=== PATIENT | female | born 1940 | race Caucasian/White ===

== ENCOUNTER 2019-04-09 11:20 | Inpatient (IN) | payer MEDICARE, OTHER, MEDICAID ==
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
[2019-04-09] MEDS: Acetaminophen/oxyCODONE 325-5 MG Tab PO PRN ×2 (16:59→23:08)
[2019-04-09] MEDS: LEVODOPA PO SCH (17:52)
[2019-04-09] MEDS: CARBIDOPA PO SCH (17:52)
[2019-04-09] MEDS: Morphine Oral Concentrate 20 MG/ML 30 ML Bottle PO PRN (20:14)
[2019-04-09] MEDS: Ondansetron 4 MG Tab.DIS PO PRN (20:17)
[2019-04-09] MEDS: Simvastatin 20 MG Tab PO SCH (20:17)
[2019-04-09] MEDS: Polyethylene Glycol 3350 Powder 510 GM Bot PO SCH (20:38)
[2019-04-10] MEDS: Acetaminophen 325 MG Tab PO PRN (01:13)
[2019-04-10] MEDS: Morphine Oral Concentrate 20 MG/ML 30 ML Bottle PO PRN (03:02)
[2019-04-10] MEDS: Ondansetron 4 MG Tab.DIS PO PRN ×4 (05:37→20:51)
[2019-04-10] MEDS: Levothyroxine 50 MCG Tab PO SCH (08:30)
[2019-04-10] MEDS: Losartan 50 MG Tab PO SCH (08:30)
[2019-04-10] MEDS: Aspirin 81 MG Tab.EC PO SCH (08:31)
[2019-04-10] MEDS: Hydrochlorothiazide 25 MG Tab PO SCH (08:32)
[2019-04-10] MEDS: LEVODOPA PO SCH ×2 (08:56→17:01)
[2019-04-10] MEDS: CARBIDOPA PO SCH ×2 (08:56→17:01)
[2019-04-10] MEDS: Acetaminophen/oxyCODONE 325-5 MG Tab PO PRN ×3 (08:57→23:21)
[2019-04-10] MEDS: Simvastatin 20 MG Tab PO SCH (20:51)
[2019-04-10] MEDS: Polyethylene Glycol 3350 Powder 510 GM Bot PO SCH (20:52)
[2019-04-11] MEDS ORDERED: Promethazine 25 MG/ML SDV IM ONE (00:02)
[2019-04-11] MEDS: Levothyroxine 50 MCG Tab PO SCH (07:52)
[2019-04-11] MEDS: Losartan 50 MG Tab PO SCH (07:52)
[2019-04-11] MEDS: Aspirin 81 MG Tab.EC PO SCH (07:54)
[2019-04-11] MEDS: Hydrochlorothiazide 25 MG Tab PO SCH (07:55)
[2019-04-11] MEDS: LEVODOPA PO SCH ×2 (07:56→17:22)
[2019-04-11] MEDS: CARBIDOPA PO SCH ×2 (07:56→17:22)
[2019-04-11] MEDS: Hydrocortisone 1% Crm 30 GM Tube TOP SCH (19:50)
[2019-04-11] MEDS: Polyethylene Glycol 3350 Powder 510 GM Bot PO SCH (19:51)
[2019-04-11] MEDS: Simvastatin 20 MG Tab PO SCH (19:51)
[2019-04-12] MEDS: Levothyroxine 50 MCG Tab PO SCH (08:08)
[2019-04-12] MEDS: Losartan 50 MG Tab PO SCH (08:12)
[2019-04-12] MEDS: Aspirin 81 MG Tab.EC PO SCH (08:13)
[2019-04-12] MEDS: Hydrochlorothiazide 25 MG Tab PO SCH (08:14)
[2019-04-12] MEDS: CARBIDOPA PO SCH ×2 (08:14→17:27)
[2019-04-12] MEDS: LEVODOPA PO SCH ×2 (08:14→17:27)
[2019-04-12] MEDS: Acetaminophen 325 MG Tab PO PRN ×2 (13:15→20:07)
[2019-04-12] MEDS: Polyethylene Glycol 3350 Powder 510 GM Bot PO SCH (19:19)
[2019-04-12] MEDS: Hydrocortisone 1% Crm 30 GM Tube TOP SCH (20:07)
[2019-04-12] MEDS: Simvastatin 20 MG Tab PO SCH (20:07)
[2019-04-13] MEDS: Acetaminophen 325 MG Tab PO PRN ×2 (05:19→19:42)
[2019-04-13] MEDS: Levothyroxine 50 MCG Tab PO SCH (08:04)
[2019-04-13] MEDS: Losartan 50 MG Tab PO SCH (08:08)
[2019-04-13] MEDS: Aspirin 81 MG Tab.EC PO SCH (08:08)
[2019-04-13] MEDS: LEVODOPA PO SCH ×2 (08:09→17:23)
[2019-04-13] MEDS: CARBIDOPA PO SCH ×2 (08:09→17:23)
[2019-04-13] MEDS: Hydrochlorothiazide 25 MG Tab PO SCH (08:09)
[2019-04-13] MEDS: Polyethylene Glycol 3350 Powder 510 GM Bot PO SCH (19:40)
[2019-04-13] MEDS: Hydrocortisone 1% Crm 30 GM Tube TOP SCH (19:42)
[2019-04-13] MEDS: Simvastatin 20 MG Tab PO SCH (19:43)
[2019-04-14] MEDS: Acetaminophen 325 MG Tab PO PRN ×2 (01:45→07:01)
[2019-04-14] MEDS: Promethazine 25 MG/ML SDV IM PRN (03:53)
[2019-04-14] MEDS: Levothyroxine 50 MCG Tab PO SCH (07:01)
[2019-04-14] MEDS: Hydrochlorothiazide 25 MG Tab PO SCH (07:07)
[2019-04-14] MEDS: Aspirin 81 MG Tab.EC PO SCH (07:07)
[2019-04-14] MEDS: LEVODOPA PO SCH ×2 (07:09→18:11)
[2019-04-14] MEDS: CARBIDOPA PO SCH ×2 (07:09→18:11)
[2019-04-14] MEDS: Losartan 50 MG Tab PO SCH (08:36)
--- NOTE | 2019-04-14 17:49 | PCM.SN ---
- Free Text/Narrative Note: Patient is a 78-year-old female who was recently admitted to swing bed today night nurse called stating that patient was increased confused and agitated trying to get up from bed all day long I went to visit with the patient patient was awake and alert. To be very anxious and did not want to rest offered me that during but knew why was patient appeared confused and disoriented a UA was obtained which showed that she has a UTI I will go ahead and do electrolytes we will go ahead and start her on Ativan to calm her down for the next couple days while we work her up for her confusion Electrolytes ordered Physical exam normocephalic atraumatic eyes PERRLA neck was supple lungs clear to localization heart was regular rate and rhythm around 90 bpm abdomen was soft nontender extremities reveal range of motion denies pain Assessmen confusion secondary to UTI Fabio we will start her on antibiotics for UTI check electrolytes start her on Ativan in an attempt for her to be less agitated so that she won't harm herself or others around her.n t
[2019-04-14] MEDS: Sulfamethoxazole/Trimethoprim 800-160 MG Tab PO SCH (18:12)
[2019-04-14] MEDS: LORazepam 1 MG Tab PO PRN (18:12)
[2019-04-14 18:27] LABS: CHLORIDE,CL 94 mmol/L (98-107); SODIUM,NA 133 mmol/L (136-145)
[2019-04-14] MEDS: Hydrocortisone 1% Crm 30 GM Tube TOP SCH (20:24)
[2019-04-14] MEDS: Simvastatin 20 MG Tab PO SCH (20:25)
[2019-04-14] MEDS: Polyethylene Glycol 3350 Powder 510 GM Bot PO SCH (20:25)
[2019-04-15] MEDS: Levothyroxine 50 MCG Tab PO SCH (07:53)
[2019-04-15] MEDS: Hydrochlorothiazide 25 MG Tab PO SCH (07:54)
[2019-04-15] MEDS: Aspirin 81 MG Tab.EC PO SCH (07:54)
[2019-04-15] MEDS: LEVODOPA PO SCH ×2 (07:55→17:19)
[2019-04-15] MEDS: CARBIDOPA PO SCH ×2 (07:55→17:19)
[2019-04-15] MEDS: Acetaminophen 325 MG Tab PO PRN ×2 (07:56→17:19)
[2019-04-15] MEDS: Losartan 50 MG Tab PO SCH (07:56)
[2019-04-15] MEDS: Sulfamethoxazole/Trimethoprim 800-160 MG Tab PO SCH ×2 (08:05→17:20)
[2019-04-15] MEDS: Hydrocortisone 1% Crm 30 GM Tube TOP SCH (19:52)
[2019-04-15] MEDS: Simvastatin 20 MG Tab PO SCH (19:53)
[2019-04-15] MEDS: Polyethylene Glycol 3350 Powder 510 GM Bot PO SCH (19:54)
[2019-04-16] MEDS: Acetaminophen 325 MG Tab PO PRN ×2 (05:19→17:15)
[2019-04-16] MEDS: Levothyroxine 50 MCG Tab PO SCH (08:00)
[2019-04-16] MEDS: Hydrochlorothiazide 25 MG Tab PO SCH (08:01)
[2019-04-16] MEDS: Aspirin 81 MG Tab.EC PO SCH (08:01)
[2019-04-16] MEDS: Lutein/Minerals/Vitamin C/Vitamin E Acetate Cap PO SCH (08:02)
[2019-04-16] MEDS: Sulfamethoxazole/Trimethoprim 800-160 MG Tab PO SCH ×2 (08:02→17:16)
[2019-04-16] MEDS: CARBIDOPA PO SCH ×2 (08:02→17:16)
[2019-04-16] MEDS: LEVODOPA PO SCH ×2 (08:02→17:16)
[2019-04-16] MEDS: Losartan 50 MG Tab PO SCH (08:10)
[2019-04-16] MEDS: Polyethylene Glycol 3350 Powder 510 GM Bot PO SCH (19:15)
[2019-04-16] MEDS: Hydrocortisone 1% Crm 30 GM Tube TOP SCH (19:16)
[2019-04-16] MEDS: Simvastatin 20 MG Tab PO SCH (19:16)
[2019-04-17] MEDS: CARBIDOPA PO SCH ×2 (08:48→17:38)
[2019-04-17] MEDS: LEVODOPA PO SCH ×2 (08:48→17:38)
[2019-04-17] MEDS: Sulfamethoxazole/Trimethoprim 800-160 MG Tab PO SCH ×2 (08:48→17:38)
[2019-04-17] MEDS: Hydrochlorothiazide 25 MG Tab PO SCH (08:49)
[2019-04-17] MEDS: Levothyroxine 50 MCG Tab PO SCH (08:49)
[2019-04-17] MEDS: Losartan 50 MG Tab PO SCH (08:50)
[2019-04-17] MEDS: Lutein/Minerals/Vitamin C/Vitamin E Acetate Cap PO SCH (08:54)
[2019-04-17] MEDS: Aspirin 81 MG Tab.EC PO SCH (08:54)
[2019-04-17] MEDS: Simvastatin 20 MG Tab PO SCH (19:28)
[2019-04-17] MEDS: Hydrocortisone 1% Crm 30 GM Tube TOP SCH (19:28)
[2019-04-17] MEDS: Polyethylene Glycol 3350 Powder 510 GM Bot PO SCH (19:29)
[2019-04-17] MEDS: LORazepam 1 MG Tab PO PRN (20:40)
[2019-04-18] MEDS: Hydrochlorothiazide 25 MG Tab PO SCH (09:07)
[2019-04-18] MEDS: Levothyroxine 50 MCG Tab PO SCH (09:08)
[2019-04-18] MEDS: Losartan 50 MG Tab PO SCH (09:09)
[2019-04-18] MEDS: CARBIDOPA PO SCH ×2 (09:10→17:25)
[2019-04-18] MEDS: LEVODOPA PO SCH ×2 (09:10→17:25)
[2019-04-18] MEDS: Aspirin 81 MG Tab.EC PO SCH (09:12)
[2019-04-18] MEDS: Lutein/Minerals/Vitamin C/Vitamin E Acetate Cap PO SCH (09:12)
[2019-04-18] MEDS: Sulfamethoxazole/Trimethoprim 800-160 MG Tab PO SCH ×2 (09:13→17:26)
[2019-04-18] MEDS: Acetaminophen 325 MG Tab PO PRN ×2 (09:13→17:24)
[2019-04-18] MEDS: LORazepam 1 MG Tab PO PRN (17:23)
[2019-04-18] MEDS: Hydrocortisone 1% Crm 30 GM Tube TOP SCH (19:52)
[2019-04-18] MEDS: Polyethylene Glycol 3350 Powder 510 GM Bot PO SCH (19:53)
[2019-04-18] MEDS: Simvastatin 20 MG Tab PO SCH (19:54)
[2019-04-19] MEDS: Hydrochlorothiazide 25 MG Tab PO SCH (08:29)
[2019-04-19] MEDS: Acetaminophen 325 MG Tab PO PRN ×2 (08:29→17:06)
[2019-04-19] MEDS: Levothyroxine 50 MCG Tab PO SCH (08:33)
[2019-04-19] MEDS: Losartan 50 MG Tab PO SCH (08:34)
[2019-04-19] MEDS: Aspirin 81 MG Tab.EC PO SCH (08:34)
[2019-04-19] MEDS: LEVODOPA PO SCH ×2 (08:35→17:05)
[2019-04-19] MEDS: Sulfamethoxazole/Trimethoprim 800-160 MG Tab PO SCH ×2 (08:35→17:05)
[2019-04-19] MEDS: CARBIDOPA PO SCH ×2 (08:35→17:05)
[2019-04-19] MEDS: Lutein/Minerals/Vitamin C/Vitamin E Acetate Cap PO SCH (08:36)
[2019-04-19] MEDS: LORazepam 1 MG Tab PO PRN ×2 (09:34→21:04)
[2019-04-19] MEDS: Hydrocortisone 1% Crm 30 GM Tube TOP SCH (19:59)
[2019-04-19] MEDS: Simvastatin 20 MG Tab PO SCH (19:59)
[2019-04-19] MEDS: Polyethylene Glycol 3350 Powder 510 GM Bot PO SCH (20:00)
[2019-04-20] MEDS: LEVODOPA PO SCH ×2 (08:12→19:45)
[2019-04-20] MEDS: CARBIDOPA PO SCH ×2 (08:12→19:45)
[2019-04-20] MEDS: Levothyroxine 50 MCG Tab PO SCH (08:12)
[2019-04-20] MEDS: Hydrochlorothiazide 25 MG Tab PO SCH (08:13)
[2019-04-20] MEDS: Losartan 50 MG Tab PO SCH (08:13)
[2019-04-20] MEDS: Aspirin 81 MG Tab.EC PO SCH (08:14)
[2019-04-20] MEDS: Lutein/Minerals/Vitamin C/Vitamin E Acetate Cap PO SCH (08:15)
[2019-04-20] MEDS: Sulfamethoxazole/Trimethoprim 800-160 MG Tab PO SCH ×2 (08:15→19:45)
[2019-04-20] MEDS: Acetaminophen 325 MG Tab PO PRN ×3 (08:16→20:56)
[2019-04-20] MEDS: LORazepam 1 MG Tab PO PRN ×2 (08:16→19:48)
[2019-04-20] MEDS: Polyethylene Glycol 3350 Powder 510 GM Bot PO SCH (19:45)
[2019-04-20] MEDS: Hydrocortisone 1% Crm 30 GM Tube TOP SCH (19:45)
[2019-04-20] MEDS: Simvastatin 20 MG Tab PO SCH (19:46)
[2019-04-21] MEDS: Losartan 50 MG Tab PO SCH (08:05)
[2019-04-21] MEDS: Levothyroxine 50 MCG Tab PO SCH (08:05)
[2019-04-21] MEDS: Aspirin 81 MG Tab.EC PO SCH (08:06)
[2019-04-21] MEDS: Hydrochlorothiazide 25 MG Tab PO SCH (08:06)
[2019-04-21] MEDS: LEVODOPA PO SCH ×2 (08:06→17:12)
[2019-04-21] MEDS: CARBIDOPA PO SCH ×2 (08:06→17:12)
[2019-04-21] MEDS: Sulfamethoxazole/Trimethoprim 800-160 MG Tab PO SCH ×2 (08:07→17:12)
[2019-04-21] MEDS: Lutein/Minerals/Vitamin C/Vitamin E Acetate Cap PO SCH (08:07)
[2019-04-21] MEDS: Acetaminophen 325 MG Tab PO PRN ×2 (08:08→13:28)
[2019-04-21] MEDS: LORazepam 1 MG Tab PO PRN (13:54)
[2019-04-21] MEDS: Polyethylene Glycol 3350 Powder 510 GM Bot PO SCH (19:35)
[2019-04-21] MEDS: Hydrocortisone 1% Crm 30 GM Tube TOP SCH (19:35)
[2019-04-21] MEDS: Simvastatin 20 MG Tab PO SCH (19:35)
[2019-04-22] MEDS: Acetaminophen 325 MG Tab PO PRN ×2 (03:19→22:47)
[2019-04-22] MEDS: LORazepam 1 MG Tab PO PRN ×2 (04:15→22:48)
[2019-04-22] MEDS: Levothyroxine 50 MCG Tab PO SCH (07:45)
[2019-04-22] MEDS: Losartan 50 MG Tab PO SCH (07:45)
[2019-04-22] MEDS: Aspirin 81 MG Tab.EC PO SCH (07:46)
[2019-04-22] MEDS: LEVODOPA PO SCH ×2 (07:46→17:23)
[2019-04-22] MEDS: CARBIDOPA PO SCH ×2 (07:46→17:23)
[2019-04-22] MEDS: Hydrochlorothiazide 25 MG Tab PO SCH (07:46)
[2019-04-22] MEDS: Sulfamethoxazole/Trimethoprim 800-160 MG Tab PO SCH ×2 (07:47→17:23)
[2019-04-22] MEDS: Lutein/Minerals/Vitamin C/Vitamin E Acetate Cap PO SCH (07:47)
[2019-04-22] MEDS: Hydrocortisone 1% Crm 30 GM Tube TOP SCH (19:34)
[2019-04-22] MEDS: Simvastatin 20 MG Tab PO SCH (19:35)
[2019-04-22] MEDS: Polyethylene Glycol 3350 Powder 510 GM Bot PO SCH (19:36)
[2019-04-23] MEDS: Levothyroxine 50 MCG Tab PO SCH (08:26)
[2019-04-23] MEDS: Losartan 50 MG Tab PO SCH (08:28)
[2019-04-23] MEDS: Aspirin 81 MG Tab.EC PO SCH (08:33)
[2019-04-23] MEDS: Hydrochlorothiazide 25 MG Tab PO SCH (08:33)
[2019-04-23] MEDS: CARBIDOPA PO SCH ×2 (08:34→17:14)
[2019-04-23] MEDS: LEVODOPA PO SCH ×2 (08:34→17:14)
[2019-04-23] MEDS: Lutein/Minerals/Vitamin C/Vitamin E Acetate Cap PO SCH (08:34)
[2019-04-23] MEDS: Sulfamethoxazole/Trimethoprim 800-160 MG Tab PO SCH ×2 (08:35→17:13)
[2019-04-23] MEDS: Acetaminophen 325 MG Tab PO PRN (08:39)
[2019-04-23] MEDS: LORazepam 1 MG Tab PO PRN ×2 (10:40→21:54)
[2019-04-23] MEDS: Ondansetron 4 MG Tab.DIS PO PRN (17:12)
[2019-04-23] MEDS: Hydrocortisone 1% Crm 30 GM Tube TOP SCH (19:41)
[2019-04-23] MEDS: Polyethylene Glycol 3350 Powder 510 GM Bot PO SCH (19:41)
[2019-04-23] MEDS: Simvastatin 20 MG Tab PO SCH (19:42)
[2019-04-24] MEDS: Levothyroxine 50 MCG Tab PO SCH ×2 (05:08→09:53)
[2019-04-24] MEDS: Losartan 50 MG Tab PO SCH ×2 (05:11→09:52)
[2019-04-24] MEDS: Aspirin 81 MG Tab.EC PO SCH ×2 (05:13→09:53)
[2019-04-24] MEDS: Hydrochlorothiazide 25 MG Tab PO SCH ×2 (05:14→09:53)
[2019-04-24] MEDS: LEVODOPA PO SCH ×3 (05:15→17:38)
[2019-04-24] MEDS: CARBIDOPA PO SCH ×3 (05:15→17:38)
[2019-04-24] MEDS: Sulfamethoxazole/Trimethoprim 800-160 MG Tab PO SCH ×3 (05:16→17:38)
[2019-04-24] MEDS: Lutein/Minerals/Vitamin C/Vitamin E Acetate Cap PO SCH ×2 (05:16→09:54)
[2019-04-24] MEDS: Acetaminophen 325 MG Tab PO PRN ×2 (05:20→23:44)
[2019-04-24] MEDS ORDERED: LORazepam 1 MG Tab PO ONE (05:30)
[2019-04-24] MEDS: Ondansetron 4 MG Tab.DIS PO PRN (13:37)
[2019-04-24] MEDS: Simvastatin 20 MG Tab PO SCH (19:35)
[2019-04-24] MEDS: Hydrocortisone 1% Crm 30 GM Tube TOP SCH (19:35)
[2019-04-25] MEDS: LORazepam 1 MG Tab PO PRN ×2 (03:02→19:22)
[2019-04-25] MEDS: Levothyroxine 50 MCG Tab PO SCH (07:34)
[2019-04-25] MEDS: Losartan 50 MG Tab PO SCH (07:35)
[2019-04-25] MEDS: Aspirin 81 MG Tab.EC PO SCH (07:35)
[2019-04-25] MEDS: Hydrochlorothiazide 25 MG Tab PO SCH (07:36)
[2019-04-25] MEDS: Lutein/Minerals/Vitamin C/Vitamin E Acetate Cap PO SCH (07:37)
[2019-04-25] MEDS: LEVODOPA PO SCH ×2 (07:37→17:12)
[2019-04-25] MEDS: CARBIDOPA PO SCH ×2 (07:37→17:12)
[2019-04-25] MEDS: Acetaminophen 325 MG Tab PO PRN ×2 (07:39→13:50)
[2019-04-25] MEDS ORDERED: Polyethylene Glycol 3350 Powder 17 GM Packet PO SCH (08:00)
[2019-04-25] MEDS: Sertraline 25 MG Tab PO SCH (08:08)
[2019-04-25] MEDS: Ondansetron 4 MG Tab.DIS PO PRN (10:21)
[2019-04-25] MEDS: traMADol 50 MG Tab PO PRN (16:48)
[2019-04-25] MEDS: Simvastatin 20 MG Tab PO SCH (19:20)
[2019-04-25] MEDS: Hydrocortisone 1% Crm 30 GM Tube TOP SCH (19:21)
[2019-04-26] MEDS: Aluminum Hydroxide/Magnesium Hydroxide/Simethicone Susp 30 ML Cup PO PRN (00:42)
[2019-04-26] MEDS: Levothyroxine 50 MCG Tab PO SCH (08:08)
[2019-04-26] MEDS: Losartan 50 MG Tab PO SCH (08:08)
[2019-04-26] MEDS: Aspirin 81 MG Tab.EC PO SCH (08:09)
[2019-04-26] MEDS: Hydrochlorothiazide 25 MG Tab PO SCH (08:09)
[2019-04-26] MEDS: LEVODOPA PO SCH ×2 (08:10→17:12)
[2019-04-26] MEDS: CARBIDOPA PO SCH ×2 (08:10→17:12)
[2019-04-26] MEDS: Lutein/Minerals/Vitamin C/Vitamin E Acetate Cap PO SCH (08:11)
[2019-04-26] MEDS: Sertraline 25 MG Tab PO SCH (08:12)
[2019-04-26] MEDS: Acetaminophen 325 MG Tab PO PRN ×2 (08:13→13:10)
[2019-04-26] MEDS: traMADol 50 MG Tab PO PRN (15:18)
[2019-04-26] MEDS: Ondansetron 4 MG Tab.DIS PO PRN (16:03)
[2019-04-26] MEDS: Hydrocortisone 1% Crm 30 GM Tube TOP SCH (19:20)
[2019-04-26] MEDS: Simvastatin 20 MG Tab PO SCH (19:21)
[2019-04-26] MEDS: LORazepam 1 MG Tab PO PRN (19:22)
[2019-04-27] MEDS: Levothyroxine 50 MCG Tab PO SCH (08:10)
[2019-04-27] MEDS: CARBIDOPA PO SCH ×2 (08:11→17:18)
[2019-04-27] MEDS: LEVODOPA PO SCH ×2 (08:11→17:18)
[2019-04-27] MEDS: Hydrochlorothiazide 25 MG Tab PO SCH (08:12)
[2019-04-27] MEDS: Losartan 50 MG Tab PO SCH (08:13)
[2019-04-27] MEDS: Aspirin 81 MG Tab.EC PO SCH (08:14)
[2019-04-27] MEDS: Sertraline 25 MG Tab PO SCH (08:15)
[2019-04-27] MEDS: Polyethylene Glycol 3350 Powder 510 GM Bot PO SCH (08:17)
[2019-04-27] MEDS: Lutein/Minerals/Vitamin C/Vitamin E Acetate Cap PO SCH (08:18)
[2019-04-27] MEDS: Ondansetron 4 MG Tab.DIS PO PRN (08:26)
[2019-04-27] MEDS: Acetaminophen 325 MG Tab PO PRN (13:38)
[2019-04-27] MEDS: traMADol 50 MG Tab PO PRN ×2 (15:05→23:17)
[2019-04-27] MEDS: Hydrocortisone 1% Crm 30 GM Tube TOP SCH (19:28)
[2019-04-27] MEDS: Simvastatin 20 MG Tab PO SCH (19:29)
[2019-04-27] MEDS: LORazepam 1 MG Tab PO PRN (19:30)
[2019-04-27] MEDS: Aluminum Hydroxide/Magnesium Hydroxide/Simethicone Susp 30 ML Cup PO PRN (23:21)
[2019-04-28] MEDS: Losartan 50 MG Tab PO SCH (07:49)
[2019-04-28] MEDS: Levothyroxine 50 MCG Tab PO SCH (07:49)
[2019-04-28] MEDS: Lutein/Minerals/Vitamin C/Vitamin E Acetate Cap PO SCH (07:50)
[2019-04-28] MEDS: LEVODOPA PO SCH ×2 (07:50→17:14)
[2019-04-28] MEDS: Aspirin 81 MG Tab.EC PO SCH (07:50)
[2019-04-28] MEDS: CARBIDOPA PO SCH ×2 (07:50→17:14)
[2019-04-28] MEDS: Hydrochlorothiazide 25 MG Tab PO SCH (07:50)
[2019-04-28] MEDS: Sertraline 25 MG Tab PO SCH (07:51)
[2019-04-28] MEDS: Acetaminophen 325 MG Tab PO PRN ×3 (07:51→22:48)
[2019-04-28] MEDS: traMADol 50 MG Tab PO PRN (09:56)
[2019-04-28] MEDS: Ondansetron 4 MG Tab.DIS PO PRN (13:11)
[2019-04-28] MEDS: LORazepam 1 MG Tab PO PRN (13:29)
[2019-04-28] MEDS: Hydrocortisone 1% Crm 30 GM Tube TOP SCH (19:20)
[2019-04-28] MEDS: [UNRECOGNIZED DRUG - OTHER] EYEBOTH SCH (19:20)
[2019-04-28] MEDS: Simvastatin 20 MG Tab PO SCH (19:21)
[2019-04-29] MEDS: CARBIDOPA PO SCH ×2 (08:00→17:03)
[2019-04-29] MEDS: LEVODOPA PO SCH ×2 (08:00→17:03)
[2019-04-29] MEDS: Sertraline 25 MG Tab PO SCH (08:01)
[2019-04-29] MEDS: Losartan 50 MG Tab PO SCH (08:02)
[2019-04-29] MEDS: Hydrochlorothiazide 25 MG Tab PO SCH (08:02)
[2019-04-29] MEDS: Levothyroxine 50 MCG Tab PO SCH (08:03)
[2019-04-29] MEDS: Aspirin 81 MG Tab.EC PO SCH (08:03)
[2019-04-29] MEDS: [UNRECOGNIZED DRUG - OTHER] EYEBOTH SCH ×2 (08:04→19:41)
[2019-04-29] MEDS: Lutein/Minerals/Vitamin C/Vitamin E Acetate Cap PO SCH (08:04)
[2019-04-29] MEDS: traMADol 50 MG Tab PO PRN ×2 (08:05→16:38)
[2019-04-29] MEDS: Polyethylene Glycol 3350 Powder 510 GM Bot PO SCH (08:25)
[2019-04-29] MEDS ORDERED: Meclizine 25 MG Tab PO PRN (12:00)
[2019-04-29] MEDS: LORazepam 1 MG Tab PO PRN (17:03)
[2019-04-29] MEDS: Hydrocortisone 1% Crm 30 GM Tube TOP SCH (19:42)
[2019-04-29] MEDS: Simvastatin 20 MG Tab PO SCH (19:42)
[2019-04-30] MEDS: traMADol 50 MG Tab PO PRN ×2 (03:39→18:50)
[2019-04-30] MEDS: Aspirin 81 MG Tab.EC PO SCH (07:02)
[2019-04-30] MEDS: Hydrochlorothiazide 25 MG Tab PO SCH (07:04)
[2019-04-30] MEDS: Levothyroxine 50 MCG Tab PO SCH (07:05)
[2019-04-30] MEDS: Losartan 50 MG Tab PO SCH (07:05)
[2019-04-30] MEDS: LORazepam 1 MG Tab PO PRN ×2 (07:08→18:57)
[2019-04-30] MEDS: Ondansetron 4 MG Tab.DIS PO PRN ×2 (07:08→17:50)
[2019-04-30] MEDS: Sertraline 25 MG Tab PO SCH (07:08)
[2019-04-30] MEDS: [UNRECOGNIZED DRUG - OTHER] EYEBOTH SCH ×2 (07:10→19:05)
[2019-04-30] MEDS: Lutein/Minerals/Vitamin C/Vitamin E Acetate Cap PO SCH (07:10)
[2019-04-30] MEDS: CARBIDOPA PO SCH ×2 (07:10→17:01)
[2019-04-30] MEDS: LEVODOPA PO SCH ×2 (07:10→17:01)
[2019-04-30] MEDS: Acetaminophen 325 MG Tab PO PRN (15:26)
[2019-04-30] MEDS: Simvastatin 20 MG Tab PO SCH (19:04)
[2019-04-30] MEDS: Hydrocortisone 1% Crm 30 GM Tube TOP SCH (19:04)
[2019-05-01] MEDS: CARBIDOPA PO SCH ×2 (07:46→17:38)
[2019-05-01] MEDS: LEVODOPA PO SCH ×2 (07:46→17:38)
[2019-05-01] MEDS: Sertraline 25 MG Tab PO SCH (07:48)
[2019-05-01] MEDS: Levothyroxine 50 MCG Tab PO SCH (07:48)
[2019-05-01] MEDS: Losartan 50 MG Tab PO SCH (07:48)
[2019-05-01] MEDS: Hydrochlorothiazide 25 MG Tab PO SCH (07:48)
[2019-05-01] MEDS: Aspirin 81 MG Tab.EC PO SCH (07:49)
[2019-05-01] MEDS: [UNRECOGNIZED DRUG - OTHER] EYEBOTH SCH ×2 (07:49→19:42)
[2019-05-01] MEDS: Polyethylene Glycol 3350 Powder 510 GM Bot PO SCH (07:49)
[2019-05-01] MEDS: Lutein/Minerals/Vitamin C/Vitamin E Acetate Cap PO SCH (07:50)
[2019-05-01] MEDS: Ondansetron 4 MG Tab.DIS PO PRN (07:56)
[2019-05-01] MEDS: traMADol 50 MG Tab PO PRN (07:57)
[2019-05-01] MEDS: LORazepam 1 MG Tab PO PRN ×2 (07:58→19:49)
[2019-05-01] MEDS: Aluminum Hydroxide/Magnesium Hydroxide/Simethicone Susp 30 ML Cup PO PRN (10:39)
[2019-05-01] MEDS: Promethazine 25 MG/ML SDV IM PRN (17:45)
[2019-05-01] MEDS: Hydrocortisone 1% Crm 30 GM Tube TOP SCH (19:40)
[2019-05-01] MEDS: Simvastatin 20 MG Tab PO SCH (19:41)
[2019-05-02] MEDS: LORazepam 1 MG Tab PO PRN ×2 (07:30→20:01)
[2019-05-02] MEDS: Hydrochlorothiazide 25 MG Tab PO SCH (08:45)
[2019-05-02] MEDS: Levothyroxine 50 MCG Tab PO SCH (08:46)
[2019-05-02] MEDS: Losartan 50 MG Tab PO SCH (08:47)
[2019-05-02] MEDS: Aspirin 81 MG Tab.EC PO SCH (08:51)
[2019-05-02] MEDS: Sertraline 25 MG Tab PO SCH (08:51)
[2019-05-02] MEDS: CARBIDOPA PO SCH ×2 (08:52→17:48)
[2019-05-02] MEDS: LEVODOPA PO SCH ×2 (08:52→17:48)
[2019-05-02] MEDS: Lutein/Minerals/Vitamin C/Vitamin E Acetate Cap PO SCH (08:53)
[2019-05-02] MEDS: [UNRECOGNIZED DRUG - OTHER] EYEBOTH SCH ×2 (08:53→19:18)
[2019-05-02] MEDS: traMADol 50 MG Tab PO PRN (08:54)
[2019-05-02] MEDS: Hydrocortisone 1% Crm 30 GM Tube TOP SCH (19:16)
[2019-05-02] MEDS: Simvastatin 20 MG Tab PO SCH (19:17)
[2019-05-02] MEDS: Acetaminophen 325 MG Tab PO PRN (19:18)
[2019-05-03] MEDS: Polyethylene Glycol 3350 Powder 510 GM Bot PO SCH (08:18)
[2019-05-03] MEDS: LEVODOPA PO SCH ×2 (08:19→17:32)
[2019-05-03] MEDS: [UNRECOGNIZED DRUG - OTHER] EYEBOTH SCH ×2 (08:19→19:15)
[2019-05-03] MEDS: Lutein/Minerals/Vitamin C/Vitamin E Acetate Cap PO SCH (08:19)
[2019-05-03] MEDS: CARBIDOPA PO SCH ×2 (08:19→17:32)
[2019-05-03] MEDS: Losartan 50 MG Tab PO SCH (08:20)
[2019-05-03] MEDS: Aspirin 81 MG Tab.EC PO SCH (08:20)
[2019-05-03] MEDS: Sertraline 25 MG Tab PO SCH (08:20)
[2019-05-03] MEDS: Hydrochlorothiazide 25 MG Tab PO SCH (08:22)
[2019-05-03] MEDS: Levothyroxine 50 MCG Tab PO SCH (08:22)
[2019-05-03] MEDS: Aluminum Hydroxide/Magnesium Hydroxide/Simethicone Susp 30 ML Cup PO PRN (08:24)
[2019-05-03] MEDS: Ondansetron 4 MG Tab.DIS PO PRN (08:24)
[2019-05-03] MEDS: traMADol 50 MG Tab PO PRN (11:45)
[2019-05-03] MEDS: LORazepam 1 MG Tab PO PRN (11:45)
[2019-05-03] MEDS ORDERED: Bisacodyl 10 MG Supp RECTAL PRN (12:54)
[2019-05-03] MEDS: Acetaminophen 325 MG Tab PO PRN (17:33)
[2019-05-03] MEDS: Simvastatin 20 MG Tab PO SCH (19:15)
[2019-05-03] MEDS: Hydrocortisone 1% Crm 30 GM Tube TOP SCH (19:16)
[2019-05-04] MEDS: [UNRECOGNIZED DRUG - OTHER] EYEBOTH SCH ×2 (07:34→19:06)
[2019-05-04] MEDS: CARBIDOPA PO SCH ×2 (07:35→16:59)
[2019-05-04] MEDS: LEVODOPA PO SCH ×2 (07:35→16:59)
[2019-05-04] MEDS: Hydrochlorothiazide 25 MG Tab PO SCH (07:36)
[2019-05-04] MEDS: traMADol 50 MG Tab PO PRN (07:36)
[2019-05-04] MEDS: Sertraline 25 MG Tab PO SCH (07:37)
[2019-05-04] MEDS: Levothyroxine 50 MCG Tab PO SCH (07:37)
[2019-05-04] MEDS: Ondansetron 4 MG Tab.DIS PO PRN (07:38)
[2019-05-04] MEDS: LORazepam 1 MG Tab PO PRN (07:38)
[2019-05-04] MEDS: Losartan 50 MG Tab PO SCH (07:40)
[2019-05-04] MEDS: Aspirin 81 MG Tab.EC PO SCH (07:41)
[2019-05-04] MEDS: Lutein/Minerals/Vitamin C/Vitamin E Acetate Cap PO SCH (07:41)
[2019-05-04] MEDS: Hydrocortisone 1% Crm 30 GM Tube TOP SCH (19:06)
[2019-05-04] MEDS: Simvastatin 20 MG Tab PO SCH (19:06)
[2019-05-05] MEDS: traMADol 50 MG Tab PO PRN ×3 (04:36→20:07)
[2019-05-05] MEDS: [UNRECOGNIZED DRUG - OTHER] EYEBOTH SCH ×2 (07:48→19:43)
[2019-05-05] MEDS: LEVODOPA PO SCH ×2 (07:49→17:30)
[2019-05-05] MEDS: CARBIDOPA PO SCH ×2 (07:49→17:30)
[2019-05-05] MEDS: Aspirin 81 MG Tab.EC PO SCH (07:50)
[2019-05-05] MEDS: Ondansetron 4 MG Tab.DIS PO PRN (07:50)
[2019-05-05] MEDS: Sertraline 25 MG Tab PO SCH (07:50)
[2019-05-05] MEDS: Hydrochlorothiazide 25 MG Tab PO SCH (07:50)
[2019-05-05] MEDS: Losartan 50 MG Tab PO SCH (07:50)
[2019-05-05] MEDS: Levothyroxine 50 MCG Tab PO SCH (07:50)
[2019-05-05] MEDS: Acetaminophen 325 MG Tab PO PRN (07:51)
[2019-05-05] MEDS: Polyethylene Glycol 3350 Powder 510 GM Bot PO SCH (07:51)
[2019-05-05] MEDS: Lutein/Minerals/Vitamin C/Vitamin E Acetate Cap PO SCH (07:53)
[2019-05-05] MEDS: Hydrocortisone 1% Crm 30 GM Tube TOP SCH (19:43)
[2019-05-05] MEDS: Simvastatin 20 MG Tab PO SCH (19:44)
[2019-05-05] MEDS: LORazepam 1 MG Tab PO PRN (19:45)
[2019-05-06] MEDS: CARBIDOPA PO SCH ×2 (07:31→17:14)
[2019-05-06] MEDS: LEVODOPA PO SCH ×2 (07:31→17:14)
[2019-05-06] MEDS: [UNRECOGNIZED DRUG - OTHER] EYEBOTH SCH ×2 (07:31→19:11)
[2019-05-06] MEDS: Ondansetron 4 MG Tab.DIS PO PRN (07:33)
[2019-05-06] MEDS: Levothyroxine 50 MCG Tab PO SCH (07:33)
[2019-05-06] MEDS: LORazepam 1 MG Tab PO PRN ×2 (07:33→19:13)
[2019-05-06] MEDS: Sertraline 25 MG Tab PO SCH (07:34)
[2019-05-06] MEDS: Aspirin 81 MG Tab.EC PO SCH (07:34)
[2019-05-06] MEDS: Hydrochlorothiazide 25 MG Tab PO SCH (07:34)
[2019-05-06] MEDS: Lutein/Minerals/Vitamin C/Vitamin E Acetate Cap PO SCH (07:35)
[2019-05-06] MEDS: Losartan 50 MG Tab PO SCH (07:35)
[2019-05-06] MEDS: Hydrocortisone 1% Crm 30 GM Tube TOP SCH (19:10)
[2019-05-06] MEDS: Simvastatin 20 MG Tab PO SCH (19:12)
[2019-05-06] MEDS: traMADol 50 MG Tab PO PRN (19:13)
[2019-05-07] MEDS: LORazepam 1 MG Tab PO PRN ×2 (07:35→20:32)
[2019-05-07] MEDS: Levothyroxine 50 MCG Tab PO SCH (08:14)
[2019-05-07] MEDS: LEVODOPA PO SCH ×2 (08:15→17:45)
[2019-05-07] MEDS: CARBIDOPA PO SCH ×2 (08:15→17:45)
[2019-05-07] MEDS: Losartan 50 MG Tab PO SCH (08:16)
[2019-05-07] MEDS: Aspirin 81 MG Tab.EC PO SCH (08:17)
[2019-05-07] MEDS: Sertraline 25 MG Tab PO SCH (08:18)
[2019-05-07] MEDS: Hydrochlorothiazide 25 MG Tab PO SCH (08:18)
[2019-05-07] MEDS: Polyethylene Glycol 3350 Powder 510 GM Bot PO SCH (08:19)
[2019-05-07] MEDS: [UNRECOGNIZED DRUG - OTHER] EYEBOTH SCH ×2 (08:20→20:31)
[2019-05-07] MEDS: Lutein/Minerals/Vitamin C/Vitamin E Acetate Cap PO SCH (08:20)
[2019-05-07] MEDS: Acetaminophen 325 MG Tab PO PRN (08:22)
[2019-05-07] MEDS: Simvastatin 20 MG Tab PO SCH (20:31)
[2019-05-07] MEDS: Hydrocortisone 1% Crm 30 GM Tube TOP SCH (20:31)
[2019-05-08] MEDS: LORazepam 1 MG Tab PO PRN ×2 (08:00→19:51)
[2019-05-08] MEDS: Acetaminophen 325 MG Tab PO PRN (08:54)
[2019-05-08] MEDS: Hydrochlorothiazide 25 MG Tab PO SCH (08:55)
[2019-05-08] MEDS: Sertraline 25 MG Tab PO SCH (08:55)
[2019-05-08] MEDS: Losartan 50 MG Tab PO SCH (08:56)
[2019-05-08] MEDS: LEVODOPA PO SCH ×2 (08:57→18:00)
[2019-05-08] MEDS: Levothyroxine 50 MCG Tab PO SCH (08:57)
[2019-05-08] MEDS: CARBIDOPA PO SCH ×2 (08:57→18:00)
[2019-05-08] MEDS: Aspirin 81 MG Tab.EC PO SCH (09:02)
[2019-05-08] MEDS: [UNRECOGNIZED DRUG - OTHER] EYEBOTH SCH ×2 (09:03→19:50)
[2019-05-08] MEDS: Lutein/Minerals/Vitamin C/Vitamin E Acetate Cap PO SCH (09:03)
[2019-05-08] MEDS: Hydrocortisone 1% Crm 30 GM Tube TOP SCH (19:50)
[2019-05-08] MEDS: Simvastatin 20 MG Tab PO SCH (19:50)
[2019-05-09] MEDS: LORazepam 1 MG Tab PO PRN ×2 (07:30→19:56)
[2019-05-09] MEDS: Levothyroxine 50 MCG Tab PO SCH (08:07)
[2019-05-09] MEDS: Losartan 50 MG Tab PO SCH (08:08)
[2019-05-09] MEDS: Aspirin 81 MG Tab.EC PO SCH (08:09)
[2019-05-09] MEDS: Hydrochlorothiazide 25 MG Tab PO SCH (08:09)
[2019-05-09] MEDS: Polyethylene Glycol 3350 Powder 510 GM Bot PO SCH (08:10)
[2019-05-09] MEDS: [UNRECOGNIZED DRUG - OTHER] EYEBOTH SCH ×2 (08:11→19:55)
[2019-05-09] MEDS: CARBIDOPA PO SCH ×2 (08:11→18:04)
[2019-05-09] MEDS: Lutein/Minerals/Vitamin C/Vitamin E Acetate Cap PO SCH (08:11)
[2019-05-09] MEDS: LEVODOPA PO SCH ×2 (08:11→18:04)
[2019-05-09] MEDS: Sertraline 50 MG Tab PO SCH (08:12)
[2019-05-09] MEDS: Acetaminophen 325 MG Tab PO PRN (08:13)
[2019-05-09] MEDS: Hydrocortisone 1% Crm 30 GM Tube TOP SCH (19:54)
[2019-05-09] MEDS: Simvastatin 20 MG Tab PO SCH (19:55)
[2019-05-09] MEDS: traMADol 50 MG Tab PO PRN (19:57)
[2019-05-10] MEDS: Acetaminophen 325 MG Tab PO PRN (08:58)
[2019-05-10] MEDS: Levothyroxine 50 MCG Tab PO SCH (08:59)
[2019-05-10] MEDS: Losartan 50 MG Tab PO SCH (09:00)
[2019-05-10] MEDS: LEVODOPA PO SCH ×2 (09:02→17:20)
[2019-05-10] MEDS: Hydrochlorothiazide 25 MG Tab PO SCH (09:02)
[2019-05-10] MEDS: CARBIDOPA PO SCH ×2 (09:02→17:20)
[2019-05-10] MEDS: Aspirin 81 MG Tab.EC PO SCH (09:02)
[2019-05-10] MEDS: [UNRECOGNIZED DRUG - OTHER] EYEBOTH SCH ×2 (09:03→20:09)
[2019-05-10] MEDS: Sertraline 50 MG Tab PO SCH (09:03)
[2019-05-10] MEDS: Lutein/Minerals/Vitamin C/Vitamin E Acetate Cap PO SCH (09:04)
[2019-05-10] MEDS: traMADol 50 MG Tab PO PRN ×2 (11:36→20:11)
[2019-05-10] MEDS: Hydrocortisone 1% Crm 30 GM Tube TOP SCH (20:08)
[2019-05-10] MEDS: Simvastatin 20 MG Tab PO SCH (20:10)
[2019-05-10] MEDS: LORazepam 1 MG Tab PO PRN (20:12)
[2019-05-11] MEDS: Levothyroxine 50 MCG Tab PO SCH (07:50)
[2019-05-11] MEDS: Losartan 50 MG Tab PO SCH (07:50)
[2019-05-11] MEDS: Aspirin 81 MG Tab.EC PO SCH (07:56)
[2019-05-11] MEDS: Hydrochlorothiazide 25 MG Tab PO SCH (07:57)
[2019-05-11] MEDS: Polyethylene Glycol 3350 Powder 510 GM Bot PO SCH (07:58)
[2019-05-11] MEDS: Lutein/Minerals/Vitamin C/Vitamin E Acetate Cap PO SCH (08:00)
[2019-05-11] MEDS: CARBIDOPA PO SCH ×2 (08:02→18:08)
[2019-05-11] MEDS: LEVODOPA PO SCH ×2 (08:02→18:08)
[2019-05-11] MEDS: [UNRECOGNIZED DRUG - OTHER] EYEBOTH SCH ×2 (08:05→20:32)
[2019-05-11] MEDS: Sertraline 50 MG Tab PO SCH (08:05)
[2019-05-11] MEDS: Acetaminophen 325 MG Tab PO PRN (18:09)
[2019-05-11] MEDS: LORazepam 1 MG Tab PO PRN (20:29)
[2019-05-11] MEDS: traMADol 50 MG Tab PO PRN (20:30)
[2019-05-11] MEDS: Hydrocortisone 1% Crm 30 GM Tube TOP SCH (20:32)
[2019-05-11] MEDS: Simvastatin 20 MG Tab PO SCH (20:33)
[2019-05-12] MEDS: Levothyroxine 50 MCG Tab PO SCH (08:42)
[2019-05-12] MEDS: Aspirin 81 MG Tab.EC PO SCH (08:43)
[2019-05-12] MEDS: Losartan 50 MG Tab PO SCH (08:43)
[2019-05-12] MEDS: LEVODOPA PO SCH ×2 (08:44→17:56)
[2019-05-12] MEDS: Hydrochlorothiazide 25 MG Tab PO SCH (08:44)
[2019-05-12] MEDS: CARBIDOPA PO SCH ×2 (08:44→17:56)
[2019-05-12] MEDS: [UNRECOGNIZED DRUG - OTHER] EYEBOTH SCH ×2 (08:45→19:47)
[2019-05-12] MEDS: Lutein/Minerals/Vitamin C/Vitamin E Acetate Cap PO SCH (08:45)
[2019-05-12] MEDS: Sertraline 50 MG Tab PO SCH (08:45)
[2019-05-12] MEDS: Hydrocortisone 1% Crm 30 GM Tube TOP SCH (19:47)
[2019-05-12] MEDS: LORazepam 1 MG Tab PO PRN (19:48)
[2019-05-12] MEDS: Simvastatin 20 MG Tab PO SCH (19:48)
[2019-05-12] MEDS: traMADol 50 MG Tab PO PRN (19:49)
[2019-05-13] MEDS: Sertraline 50 MG Tab PO SCH (08:16)
[2019-05-13] MEDS: CARBIDOPA PO SCH ×2 (08:17→17:11)
[2019-05-13] MEDS: Hydrochlorothiazide 25 MG Tab PO SCH (08:17)
[2019-05-13] MEDS: LEVODOPA PO SCH ×2 (08:17→17:11)
[2019-05-13] MEDS: Losartan 50 MG Tab PO SCH (08:17)
[2019-05-13] MEDS: Levothyroxine 50 MCG Tab PO SCH (08:17)
[2019-05-13] MEDS: Lutein/Minerals/Vitamin C/Vitamin E Acetate Cap PO SCH (08:18)
[2019-05-13] MEDS: Aspirin 81 MG Tab.EC PO SCH (08:18)
[2019-05-13] MEDS: [UNRECOGNIZED DRUG - OTHER] EYEBOTH SCH ×2 (08:19→20:02)
[2019-05-13] MEDS: Polyethylene Glycol 3350 Powder 510 GM Bot PO SCH (08:19)
[2019-05-13] MEDS: Acetaminophen 325 MG Tab PO PRN (17:11)
[2019-05-13] MEDS: Hydrocortisone 1% Crm 30 GM Tube TOP SCH (20:02)
[2019-05-13] MEDS: Simvastatin 20 MG Tab PO SCH (20:03)
[2019-05-13] MEDS: LORazepam 1 MG Tab PO PRN (20:04)
[2019-05-13] MEDS: traMADol 50 MG Tab PO PRN (20:05)
[2019-05-14] MEDS: Levothyroxine 50 MCG Tab PO SCH (07:18)
[2019-05-14] MEDS: Losartan 50 MG Tab PO SCH (07:18)
[2019-05-14] MEDS: Hydrochlorothiazide 25 MG Tab PO SCH (07:19)
[2019-05-14] MEDS: Aspirin 81 MG Tab.EC PO SCH (07:19)
[2019-05-14] MEDS: Sertraline 50 MG Tab PO SCH (07:20)
[2019-05-14] MEDS: Lutein/Minerals/Vitamin C/Vitamin E Acetate Cap PO SCH (07:20)
[2019-05-14] MEDS: CARBIDOPA PO SCH ×2 (07:20→17:06)
[2019-05-14] MEDS: LEVODOPA PO SCH ×2 (07:20→17:06)
[2019-05-14] MEDS: [UNRECOGNIZED DRUG - OTHER] EYEBOTH SCH ×2 (07:20→19:40)
[2019-05-14] MEDS: Acetaminophen 325 MG Tab PO PRN (15:23)
[2019-05-14] MEDS: traMADol 50 MG Tab PO PRN (17:06)
[2019-05-14] MEDS: Hydrocortisone 1% Crm 30 GM Tube TOP SCH (19:40)
[2019-05-14] MEDS: Simvastatin 20 MG Tab PO SCH (19:42)
[2019-05-15] MEDS: traMADol 50 MG Tab PO PRN ×2 (00:07→19:06)
[2019-05-15] MEDS: LEVODOPA PO SCH ×2 (08:18→17:08)
[2019-05-15] MEDS: CARBIDOPA PO SCH ×2 (08:18→17:08)
[2019-05-15] MEDS: [UNRECOGNIZED DRUG - OTHER] EYEBOTH SCH ×2 (08:18→19:09)
[2019-05-15] MEDS: Losartan 50 MG Tab PO SCH (08:19)
[2019-05-15] MEDS: Hydrochlorothiazide 25 MG Tab PO SCH (08:20)
[2019-05-15] MEDS: Sertraline 50 MG Tab PO SCH (08:20)
[2019-05-15] MEDS: Lutein/Minerals/Vitamin C/Vitamin E Acetate Cap PO SCH (08:20)
[2019-05-15] MEDS: Levothyroxine 50 MCG Tab PO SCH (08:20)
[2019-05-15] MEDS: Aspirin 81 MG Tab.EC PO SCH (08:21)
[2019-05-15] MEDS: Polyethylene Glycol 3350 Powder 510 GM Bot PO SCH (08:21)
[2019-05-15] MEDS: Ondansetron 4 MG Tab.DIS PO PRN (17:08)
[2019-05-15] MEDS: Acetaminophen 325 MG Tab PO PRN (17:52)
[2019-05-15] MEDS: Simvastatin 20 MG Tab PO SCH (19:05)
[2019-05-15] MEDS: Hydrocortisone 1% Crm 30 GM Tube TOP SCH (19:05)
[2019-05-16] MEDS: traMADol 50 MG Tab PO PRN ×2 (02:05→16:37)
[2019-05-16] MEDS: Levothyroxine 50 MCG Tab PO SCH (07:41)
[2019-05-16] MEDS: Losartan 50 MG Tab PO SCH (07:42)
[2019-05-16] MEDS: Aspirin 81 MG Tab.EC PO SCH (07:42)
[2019-05-16] MEDS: Hydrochlorothiazide 25 MG Tab PO SCH (07:42)
[2019-05-16] MEDS: Sertraline 50 MG Tab PO SCH (07:43)
[2019-05-16] MEDS: Lutein/Minerals/Vitamin C/Vitamin E Acetate Cap PO SCH (07:43)
[2019-05-16] MEDS: CARBIDOPA PO SCH ×2 (07:43→17:25)
[2019-05-16] MEDS: [UNRECOGNIZED DRUG - OTHER] EYEBOTH SCH ×2 (07:43→19:41)
[2019-05-16] MEDS: LEVODOPA PO SCH ×2 (07:43→17:25)
[2019-05-16] MEDS: Bisacodyl 5 MG Tab PO PRN (11:10)
[2019-05-16] MEDS: Ondansetron 4 MG Tab.DIS PO PRN (16:40)
[2019-05-16] MEDS: Simvastatin 20 MG Tab PO SCH (19:41)
[2019-05-16] MEDS: LORazepam 1 MG Tab PO PRN (19:42)
[2019-05-17] MEDS: [UNRECOGNIZED DRUG - OTHER] EYEBOTH SCH ×2 (08:22→19:25)
[2019-05-17] MEDS: CARBIDOPA PO SCH ×2 (08:23→17:26)
[2019-05-17] MEDS: LEVODOPA PO SCH ×2 (08:23→17:26)
[2019-05-17] MEDS: Aspirin 81 MG Tab.EC PO SCH (08:24)
[2019-05-17] MEDS: Lutein/Minerals/Vitamin C/Vitamin E Acetate Cap PO SCH (08:24)
[2019-05-17] MEDS: Levothyroxine 50 MCG Tab PO SCH (08:24)
[2019-05-17] MEDS: Sertraline 50 MG Tab PO SCH (08:24)
[2019-05-17] MEDS: Losartan 50 MG Tab PO SCH (08:24)
[2019-05-17] MEDS: Hydrochlorothiazide 25 MG Tab PO SCH (08:24)
[2019-05-17] MEDS: Acetaminophen 325 MG Tab PO PRN (08:27)
[2019-05-17] MEDS: LORazepam 1 MG Tab PO PRN ×2 (08:27→19:26)
[2019-05-17] MEDS: Polyethylene Glycol 3350 Powder 510 GM Bot PO SCH (09:54)
[2019-05-17] MEDS: Simvastatin 20 MG Tab PO SCH (19:25)
[2019-05-18] MEDS: [UNRECOGNIZED DRUG - OTHER] EYEBOTH SCH ×2 (07:43→19:41)
[2019-05-18] MEDS: CARBIDOPA PO SCH ×2 (07:43→17:22)
[2019-05-18] MEDS: LEVODOPA PO SCH ×2 (07:43→17:22)
[2019-05-18] MEDS: Losartan 50 MG Tab PO SCH (07:45)
[2019-05-18] MEDS: Levothyroxine 50 MCG Tab PO SCH (07:45)
[2019-05-18] MEDS: Hydrochlorothiazide 25 MG Tab PO SCH (07:45)
[2019-05-18] MEDS: Sertraline 50 MG Tab PO SCH (07:45)
[2019-05-18] MEDS: Lutein/Minerals/Vitamin C/Vitamin E Acetate Cap PO SCH (07:45)
[2019-05-18] MEDS: Aspirin 81 MG Tab.EC PO SCH (07:46)
[2019-05-18] MEDS: Acetaminophen 325 MG Tab PO PRN (07:46)
[2019-05-18] MEDS: LORazepam 1 MG Tab PO PRN ×2 (07:47→19:42)
[2019-05-18] MEDS: Simvastatin 20 MG Tab PO SCH (19:41)
[2019-05-19] MEDS: Levothyroxine 50 MCG Tab PO SCH (08:18)
[2019-05-19] MEDS: Aspirin 81 MG Tab.EC PO SCH (08:19)
[2019-05-19] MEDS: Losartan 50 MG Tab PO SCH (08:19)
[2019-05-19] MEDS: Hydrochlorothiazide 25 MG Tab PO SCH (08:20)
[2019-05-19] MEDS: LEVODOPA PO SCH ×2 (08:21→18:11)
[2019-05-19] MEDS: CARBIDOPA PO SCH ×2 (08:21→18:11)
[2019-05-19] MEDS: [UNRECOGNIZED DRUG - OTHER] EYEBOTH SCH ×2 (08:22→19:54)
[2019-05-19] MEDS: Lutein/Minerals/Vitamin C/Vitamin E Acetate Cap PO SCH (08:22)
[2019-05-19] MEDS: Sertraline 50 MG Tab PO SCH (08:23)
[2019-05-19] MEDS: Polyethylene Glycol 3350 Powder 510 GM Bot PO SCH (08:24)
[2019-05-19] MEDS: Simvastatin 20 MG Tab PO SCH (19:53)
[2019-05-20] MEDS: Losartan 50 MG Tab PO SCH (08:23)
[2019-05-20] MEDS: Levothyroxine 50 MCG Tab PO SCH (08:23)
[2019-05-20] MEDS: Aspirin 81 MG Tab.EC PO SCH (08:24)
[2019-05-20] MEDS: CARBIDOPA PO SCH ×2 (08:24→17:17)
[2019-05-20] MEDS: Hydrochlorothiazide 25 MG Tab PO SCH (08:24)
[2019-05-20] MEDS: LEVODOPA PO SCH ×2 (08:24→17:17)
[2019-05-20] MEDS: Sertraline 50 MG Tab PO SCH (08:25)
[2019-05-20] MEDS: [UNRECOGNIZED DRUG - OTHER] EYEBOTH SCH ×2 (08:25→19:12)
[2019-05-20] MEDS: Lutein/Minerals/Vitamin C/Vitamin E Acetate Cap PO SCH (08:25)
[2019-05-20] MEDS: Ondansetron 4 MG Tab.DIS PO PRN ×3 (08:26→17:18)
[2019-05-20] MEDS: Simvastatin 20 MG Tab PO SCH (19:13)
[2019-05-20] MEDS: traMADol 50 MG Tab PO PRN (19:14)
[2019-05-21] MEDS: [UNRECOGNIZED DRUG - OTHER] EYEBOTH SCH ×2 (08:38→19:14)
[2019-05-21] MEDS: Levothyroxine 50 MCG Tab PO SCH (08:39)
[2019-05-21] MEDS: Losartan 50 MG Tab PO SCH (08:39)
[2019-05-21] MEDS: Aspirin 81 MG Tab.EC PO SCH (08:43)
[2019-05-21] MEDS: Hydrochlorothiazide 25 MG Tab PO SCH (08:43)
[2019-05-21] MEDS: Polyethylene Glycol 3350 Powder 510 GM Bot PO SCH (08:44)
[2019-05-21] MEDS: LEVODOPA PO SCH ×2 (08:45→17:31)
[2019-05-21] MEDS: CARBIDOPA PO SCH ×2 (08:45→17:31)
[2019-05-21] MEDS: Lutein/Minerals/Vitamin C/Vitamin E Acetate Cap PO SCH (08:46)
[2019-05-21] MEDS: Sertraline 50 MG Tab PO SCH (08:46)
[2019-05-21] MEDS: traMADol 50 MG Tab PO PRN ×2 (08:47→19:16)
[2019-05-21] MEDS: Ondansetron 4 MG Tab.DIS PO PRN ×2 (08:47→13:06)
[2019-05-21] MEDS: LORazepam 1 MG Tab PO PRN (13:07)
[2019-05-21] MEDS: Bisacodyl 5 MG Tab PO PRN (14:18)
[2019-05-21] MEDS: Simvastatin 20 MG Tab PO SCH (19:15)
[2019-05-22] MEDS: CARBIDOPA PO SCH ×2 (08:53→17:08)
[2019-05-22] MEDS: LEVODOPA PO SCH ×2 (08:53→17:08)
[2019-05-22] MEDS: Losartan 50 MG Tab PO SCH (08:54)
[2019-05-22] MEDS: [UNRECOGNIZED DRUG - OTHER] EYEBOTH SCH ×2 (08:54→20:31)
[2019-05-22] MEDS: Hydrochlorothiazide 25 MG Tab PO SCH (08:54)
[2019-05-22] MEDS: Levothyroxine 50 MCG Tab PO SCH (08:55)
[2019-05-22] MEDS: Sertraline 50 MG Tab PO SCH (08:55)
[2019-05-22] MEDS: Ondansetron 4 MG Tab.DIS PO PRN (08:55)
[2019-05-22] MEDS: Acetaminophen 325 MG Tab PO PRN (08:56)
[2019-05-22] MEDS: Aspirin 81 MG Tab.EC PO SCH (08:56)
[2019-05-22] MEDS: Lutein/Minerals/Vitamin C/Vitamin E Acetate Cap PO SCH (08:56)
[2019-05-22] MEDS: traMADol 50 MG Tab PO PRN (17:08)
[2019-05-22] MEDS: Simvastatin 20 MG Tab PO SCH (20:30)
[2019-05-23] MEDS: LEVODOPA PO SCH ×2 (09:06→17:09)
[2019-05-23] MEDS: [UNRECOGNIZED DRUG - OTHER] EYEBOTH SCH ×2 (09:06→19:13)
[2019-05-23] MEDS: CARBIDOPA PO SCH ×2 (09:06→17:09)
[2019-05-23] MEDS: Sertraline 50 MG Tab PO SCH (09:07)
[2019-05-23] MEDS: Hydrochlorothiazide 25 MG Tab PO SCH (09:07)
[2019-05-23] MEDS: Levothyroxine 50 MCG Tab PO SCH (09:07)
[2019-05-23] MEDS: Ondansetron 4 MG Tab.DIS PO PRN ×2 (09:08→16:50)
[2019-05-23] MEDS: Losartan 50 MG Tab PO SCH (09:08)
[2019-05-23] MEDS: Aspirin 81 MG Tab.EC PO SCH (09:08)
[2019-05-23] MEDS: Lutein/Minerals/Vitamin C/Vitamin E Acetate Cap PO SCH (09:09)
[2019-05-23] MEDS: Polyethylene Glycol 3350 Powder 510 GM Bot PO SCH (09:09)
[2019-05-23] MEDS: Bisacodyl 5 MG Tab PO PRN (09:09)
[2019-05-23] MEDS: LORazepam 1 MG Tab PO PRN (16:48)
[2019-05-23] MEDS: traMADol 50 MG Tab PO PRN ×2 (16:50)
[2019-05-23] MEDS: Simvastatin 20 MG Tab PO SCH (19:13)
[2019-05-24] MEDS: [UNRECOGNIZED DRUG - OTHER] EYEBOTH SCH ×2 (08:24→19:13)
[2019-05-24] MEDS: Losartan 50 MG Tab PO SCH (08:25)
[2019-05-24] MEDS: Levothyroxine 50 MCG Tab PO SCH (08:25)
[2019-05-24] MEDS: Aspirin 81 MG Tab.EC PO SCH (08:29)
[2019-05-24] MEDS: Hydrochlorothiazide 25 MG Tab PO SCH (08:29)
[2019-05-24] MEDS: Sertraline 50 MG Tab PO SCH (08:30)
[2019-05-24] MEDS: CARBIDOPA PO SCH ×2 (08:30→17:10)
[2019-05-24] MEDS: LEVODOPA PO SCH ×2 (08:30→17:10)
[2019-05-24] MEDS: Lutein/Minerals/Vitamin C/Vitamin E Acetate Cap PO SCH (08:30)
[2019-05-24] MEDS ORDERED: Magnesium Hydroxide 400 MG/5 ML Susp 30 ML Cup PO PRN (09:11)
[2019-05-24] MEDS: Ondansetron 4 MG Tab.DIS PO PRN (16:54)
[2019-05-24] MEDS: Simvastatin 20 MG Tab PO SCH (19:13)
[2019-05-24] MEDS: traMADol 50 MG Tab PO PRN (19:14)
[2019-05-24] MEDS: Acetaminophen 325 MG Tab PO PRN (22:31)
[2019-05-25] MEDS: [UNRECOGNIZED DRUG - OTHER] EYEBOTH SCH ×2 (08:12→19:10)
[2019-05-25] MEDS: Levothyroxine 50 MCG Tab PO SCH (08:13)
[2019-05-25] MEDS: Losartan 50 MG Tab PO SCH (08:13)
[2019-05-25] MEDS: Hydrochlorothiazide 25 MG Tab PO SCH (08:15)
[2019-05-25] MEDS: Polyethylene Glycol 3350 Powder 510 GM Bot PO SCH (08:15)
[2019-05-25] MEDS: Aspirin 81 MG Tab.EC PO SCH (08:15)
[2019-05-25] MEDS: Lutein/Minerals/Vitamin C/Vitamin E Acetate Cap PO SCH (08:16)
[2019-05-25] MEDS: Sertraline 50 MG Tab PO SCH (08:16)
[2019-05-25] MEDS: CARBIDOPA PO SCH ×2 (08:16→17:22)
[2019-05-25] MEDS: LEVODOPA PO SCH ×2 (08:16→17:22)
[2019-05-25] MEDS: Acetaminophen 325 MG Tab PO PRN (15:56)
[2019-05-25] MEDS: LORazepam 1 MG Tab PO PRN (17:23)
[2019-05-25] MEDS: Ondansetron 4 MG Tab.DIS PO PRN (17:23)
[2019-05-25] MEDS: Simvastatin 20 MG Tab PO SCH (19:11)
[2019-05-26] MEDS: Levothyroxine 50 MCG Tab PO SCH (08:14)
[2019-05-26] MEDS: [UNRECOGNIZED DRUG - OTHER] EYEBOTH SCH (08:14)
[2019-05-26] MEDS: Aspirin 81 MG Tab.EC PO SCH (08:15)
[2019-05-26] MEDS: Losartan 50 MG Tab PO SCH (08:15)
[2019-05-26] MEDS: CARBIDOPA PO SCH (08:16)
[2019-05-26] MEDS: Hydrochlorothiazide 25 MG Tab PO SCH (08:16)
[2019-05-26] MEDS: LEVODOPA PO SCH (08:16)
[2019-05-26] MEDS: Lutein/Minerals/Vitamin C/Vitamin E Acetate Cap PO SCH (08:17)
[2019-05-26] MEDS: Sertraline 50 MG Tab PO SCH (08:17)
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
== END 2019-05-26 13:39 | DRG 556 ==
LOC: LL.SWG 16:21
PROVIDERS: ADMIT Nurse Practitioner; ATTEND Family Medicine
DX: M79.652 Pain in left thigh (principal); N39.0 Urinary tract infection, site not specified; M79.651 Pain in right thigh; G20 Parkinson's disease; K59.03 Drug induced constipation; T40.605A Adverse effect of unspecified narcotics, initial encounter; I89.0 Lymphedema, not elsewhere classified; F41.9 Anxiety disorder, unspecified; T14.90XS Injury, unspecified, sequela; G89.29 Other chronic pain; V49.9XXS Car occupant (driver) (passenger) injured in unspecified traffic accident, sequela; Z90.710 Acquired absence of both cervix and uterus; Z90.10 Acquired absence of unspecified breast and nipple; Z79.82 Long term (current) use of aspirin; Z79.899 Other long term (current) drug therapy; Z79.890 Hormone replacement therapy
CPT/HCPCS: 36415; 74019; 80053; 81001; 85025; 87086; 97110-GO; 97110-GP; 97112-GO; 97112-GP; 97116-GP; 97162-GP; 97165-GO; 97530-GO; 97530-GP; 97535-GO; A9270-GY; J2550

== ENCOUNTER 2020-01-15 08:18 | Day surgery (SDC) | payer MEDICARE, OTHER, MEDICAID ==
[~2020-01-15 08:18] MED LIST: Lactated Ringers 1,000 ML IV SCH; Sodium Chloride 0.9% 10 ML Syringe FLUSH PRN
[2020-01-15] MEDS ORDERED: Propofol 200 MG/20 ML SDV ONE (08:33)
[2020-01-15] MEDS ORDERED: Midazolam 1 MG/ML 2 ML SDV ONE (08:33)
--- NOTE | 2020-01-15 10:05 | PCM.HPR ---
H & P Addendum review - H & P Addendum Review Date of Original H & P: 12/18/19 Date Reviewed: 01/15/20 Time Reviewed: 10:05 Patient was Examined: No Changes
[2020-01-15] MEDS ORDERED: Propofol 200 MG/20 ML SDV IV ONE (10:20)
--- NOTE | 2020-01-15 10:38 | PCM.OPNOTE ---
- General Post-Op/Procedure Note Date of Surgery/Procedure: 01/15/20 Operative Procedure(s): EGD with Bx Findings: Jailyn Esophagitis Pre Op Diagnosis: Dysphasia Post-Op Diagnosis: Jailyn Esophagitis Anesthesia Technique: KUNAL Primary Surgeon: Zackary Ribeiro Anesthesia Provider: Melody Cano Complications: None Condition: Good
--- NOTE | 2020-01-15 12:51 | OR ---
Date of Procedure: 01/15/2020 PREOPERATIVE DIAGNOSIS: Dysphagia. POSTOPERATIVE DIAGNOSIS: Jailyn esophagitis. PROCEDURE: EGD with biopsy. ANESTHESIA: IV sedation. PROCEDURE IN DETAIL: Patient was brought to the procedure room where she was placed on her left side and IV sedation administered. Oral bite block was placed and the upper endoscope advanced into the esophagus under direct vision without difficulty. Vocal cords were viewed and were normal. The entire length of the esophagus has scattered white spots circumferentially consistent with Jailyn esophagitis. I did take a piece of these and sent it for SAKINA and hyphae are seen under the microscope to confirm Jailyn esophagitis. Two biopsies were also taken. The scope was advanced to the third portion of the duodenum. Duodenum and pylorus were normal. Antrum and body of the stomach were normal. Retroflexion was normal. Air was removed and the scope withdrawn. Patient tolerated the procedure well and returned to recovery in stable condition. I spoke with Elizabet Marsh regarding the findings. She will start her on Diflucan and nystatin swish and swallow. ESTEVAN CHANDLER MD /[id number]
== END 2020-01-15 11:30 | disposition home or self-care (01) ==
LOC: LL.SDS 08:18
PROVIDERS: ATTEND Surgery
DX: K20.9 Esophagitis, unspecified (principal); I10 Essential (primary) hypertension; G47.00 Insomnia, unspecified; E11.9 Type 2 diabetes mellitus without complications; G20 Parkinson's disease; J45.20 Mild intermittent asthma, uncomplicated; G25.81 Restless legs syndrome; I89.0 Lymphedema, not elsewhere classified; L60.0 Ingrowing nail; E66.9 Obesity, unspecified; Z79.899 Other long term (current) drug therapy; Z88.5 Allergy status to narcotic agent; Z88.8 Allergy status to other drugs, medicaments and biological substances; Z98.890 Other specified postprocedural states; Z68.26 Body mass index [BMI] 26.0-26.9, adult
CPT/HCPCS: 43239; 87220; J2250; J2704; J7120; 00731; 88305

== ENCOUNTER 2020-06-30 18:00 | Emergency (ER) | payer MEDICARE, OTHER, MEDICAID ==
[2020-06-30] MEDS ORDERED: Sodium Chloride 0.9% 10 ML Syringe FLUSH PRN (18:08)
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
[2020-06-30] MEDS ORDERED: Haloperidol Lactate 5 MG/ML SDV IVPUSH ONE (18:14)
[2020-06-30 18:47] LABS: CHLORIDE,CL 105 mmol/L (98-107); SODIUM,NA 143 mmol/L (136-145)
[2020-06-30] MEDS ORDERED: Lactated Ringers 1,000 ML IV ONE (18:56)
[2020-06-30] MEDS ORDERED: cefTRIAXone 1 GM in Sodium Chloride 0.9% 100 ML IV ONE (18:57)
== END 2020-06-30 20:17 ==
LOC: SUPCPDRO 18:00 → LL.ED 18:00
DX: G20 Parkinson's disease (principal); N76.0 Acute vaginitis; R44.3 Hallucinations, unspecified; E03.9 Hypothyroidism, unspecified; F41.8 Other specified anxiety disorders; K27.9 Peptic ulcer, site unspecified, unspecified as acute or chronic, without hemorrhage or perforation; R74.0 Nonspecific elevation of levels of transaminase and lactic acid dehydrogenase [LDH]; I10 Essential (primary) hypertension; E78.00 Pure hypercholesterolemia, unspecified; M19.90 Unspecified osteoarthritis, unspecified site; E11.9 Type 2 diabetes mellitus without complications; Z88.5 Allergy status to narcotic agent; Z88.8 Allergy status to other drugs, medicaments and biological substances; Z79.82 Long term (current) use of aspirin; Z79.899 Other long term (current) drug therapy
CPT/HCPCS: 36415; 80053; 83605; 83735; 83880; 84443; 84484; 85025; 87040; 96361; 96365; 96375; 99285-25; J0696; J1630; J7050; J7120

== ENCOUNTER 2020-07-07 20:30 | Emergency (ER) | payer MEDICARE, OTHER, MEDICAID ==
[2020-07-07] MEDS ORDERED: Lidocaine 2% with EPINEPHrine 1:100,000 20 ML MDV ONE (20:50)
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
[2020-07-07] MEDS ORDERED: Diphtheria/Tetanus Toxoids,Adult (Td) 0.5 ML Syringe IM ONE (21:18)
== END 2020-07-07 23:00 | disposition home or self-care (01) ==
LOC: LL.ED 20:30
DX: S01.111A Laceration without foreign body of right eyelid and periocular area, initial encounter (principal); E78.00 Pure hypercholesterolemia, unspecified; I10 Essential (primary) hypertension; J44.9 Chronic obstructive pulmonary disease, unspecified; M19.90 Unspecified osteoarthritis, unspecified site; G20 Parkinson's disease; F03.90 Unspecified dementia, unspecified severity, without behavioral disturbance, psychotic disturbance, mood disturbance, and anxiety; E11.9 Type 2 diabetes mellitus without complications; E03.9 Hypothyroidism, unspecified; Z88.8 Allergy status to other drugs, medicaments and biological substances; Z88.5 Allergy status to narcotic agent; Z79.82 Long term (current) use of aspirin; Z79.899 Other long term (current) drug therapy; Z23 Encounter for immunization; W19.XXXA Unspecified fall, initial encounter
CPT/HCPCS: 12013; 90471; 90714; 99282; 99283

== ENCOUNTER 2020-10-08 21:24 | Emergency (ER) | payer MEDICARE, OTHER, MEDICAID ==
[2020-10-08] MEDS ORDERED: Sodium Chloride 0.9% 1,000 ML IV ONE (21:40)
[2020-10-08] MEDS ORDERED: Sodium Chloride 0.9% 10 ML Syringe FLUSH PRN (21:49)
[2020-10-08 22:02] LABS: CHLORIDE,CL 102 mmol/L (98-107); SODIUM,NA 143 mmol/L (136-145)
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
== END 2020-10-09 00:55 ==
LOC: LL.ED 21:24
DX: R41.82 Altered mental status, unspecified (principal); R53.83 Other fatigue; I10 Essential (primary) hypertension; E78.00 Pure hypercholesterolemia, unspecified; J44.9 Chronic obstructive pulmonary disease, unspecified; F41.9 Anxiety disorder, unspecified; E11.9 Type 2 diabetes mellitus without complications; E05.90 Thyrotoxicosis, unspecified without thyrotoxic crisis or storm; Z90.49 Acquired absence of other specified parts of digestive tract; Z88.5 Allergy status to narcotic agent; Z88.8 Allergy status to other drugs, medicaments and biological substances; Z79.82 Long term (current) use of aspirin; Z79.899 Other long term (current) drug therapy; Z90.710 Acquired absence of both cervix and uterus
CPT/HCPCS: 36415; 70450; 71045; 80053; 81001; 85025; 99285-25; J7030